=== PATIENT | female | born 1955 | race Caucasian/White ===

== ENCOUNTER 2017-10-15 14:04 | Emergency (ER) | payer OTHER ==
[2017-10-15 14:26] VITALS: BMI 31.2
[2017-10-15] MEDS ORDERED: Lidocaine 2% w Epi 1:100,000 Inj IJ STA (15:28)
[2017-10-15 15:32] LABS: BASO # 0.1 K/uL (0.0-0.2); BASO % 0.3 % (0.0-2.0); EOS # 0.1 K/uL (0.0-0.7); EOS % 0.4 % (0.0-4.0); HEMATOCRIT 39.3 % (34.0-47.0); LYMPH # 2.4 K/uL (1.0-4.3); LYMPH % 14.4 % (20.0-40.0); MEAN CELL VOLUME 80.1 fL (81.0-99.0); MEAN CORPUSCULAR HEMOGLOBIN 26.2 pg (27.0-31.0); MEAN CORPUSCULAR HGB CONC 32.7 g/dL (33.0-37.0); MEAN PLATELET VOLUME 8.8 fL (7.2-11.7); MONO # 1.2 K/uL (0.0-0.8); MONO % 6.9 % (0.0-10.0); RED CELL DISTRIBUTION WIDTH 13.4 % (11.5-14.5); WHITE BLOOD COUNT 16.9 K/uL (4.8-10.8)
--- NOTE | 2017-10-15 15:33 | C.PDOC ---
History Of Present Illness 62 year old female presents to the ED for evaluation of sore throat for approximately 1 week. Patient reports she went to her PMD who prescribed her amoxicillin and steroids, she is currently taking 2 tabs of amoxicillin. Patient went to her PMD again today who sent her to the ED concerned for peritonsillar abscess, upon arrival to the ED patient has a tactile fever. Patient denies cough, nausea, vomit, diarrhea, abdominal pain. Time Seen by Provider: 10/15/17 15:08 Chief Complaint (Nursing): ENT Problem History Per: Patient History/Exam Limitations: None Onset/Duration Of Symptoms: Days Current Symptoms Are (Timing): Still Present Quality (Mouth/Throat): Swelling (peritonsillar) Anticoagulant/Antiplatlet Use?: No Recent Aspirin Use: No Past Medical History Reviewed: Historical Data, Nursing Documentation, Vital Signs Vital Signs: Last Vital Signs Temp 97.5 F L 10/15/17 18:25 Pulse 88 10/15/17 18:25 Resp 16 10/15/17 18:25 BP 142/97 H 10/15/17 18:25 Pulse Ox 96 10/15/17 18:25 - Medical History PMH: No Chronic Diseases Surgical History: No Surg Hx Family History: States: Unknown Family Hx - Social History Hx Alcohol Use: Yes Hx Substance Use: No - Immunization History Hx Tetanus Toxoid Vaccination: No Hx Influenza Vaccination: Yes (2017) Hx Pneumococcal Vaccination: No Review Of Systems Constitutional: Positive for: Fever. Negative for: Chills ENT: Positive for: Throat Pain Respiratory: Negative for: Cough Gastrointestinal: Negative for: Nausea, Vomiting, Diarrhea Skin: Negative for: Rash Physical Exam - Physical Exam Appears: Non-toxic, No Acute Distress Skin: Normal Color, Warm, Dry Head: Atraumatic, Normacephalic Nose: No Discharge, No Deformity Oral Mucosa: Moist, No Drooling Throat: Other (left peritonsillar abscess) Lymphatic: Adenopathy (Positive cervical adenopathy) Chest: Symmetrical Cardiovascular: Rhythm Regular, No Murmur Respiratory: Normal Breath Sounds, No Rales, No Rhonchi, No Wheezing Gastrointestinal/Abdominal: Soft, No Tenderness, No Guarding, No Rebound Extremity: Normal ROM, No Deformity, No Swelling Neurological/Psych: Oriented x3, Normal Speech, Normal Cognition ED Course And Treatment - Laboratory Results Result Diagrams: 10/15/17 15:29 11/30/17 15:29 O2 Sat by Pulse Oximetry: 99 (On RA) Pulse Ox Interpretation: Normal Medical Decision Making Medical Decision Making: Plan: * Neck soft tissue CT ordered * Blood work ordered * Xylocaine [address] Neck : IMPRESSION: A moderately large left peritonsillar abscess is appreciated with prominent local soft edema/ phlegmon deflecting the oral airway toward the right which nevertheless remains patent though moderately diminished in volume. Patient was discussed with Dr. Ruiz who decided to go ahead and order a neck CT and he will come see the patient in the ED. Dr. Ruiz came to the ED to perform an I&D procedure, gave instructions to d/c the patient with a prescription for augmentin, stop amoxicillin and patient will follow up in his office in 2 days. Patient told to return to ED if symptoms worsen. Disposition Discussed With : Carlos Ruiz Doctor Will See Patient In The: ED Counseled Patient/Family Regarding: Studies Performed, Diagnosis, Need For Followup, Rx Given - Disposition Referrals: Carlos Ruiz MD [Staff Provider] - Disposition: HOME/ ROUTINE Disposition Time: 18:09 Condition: STABLE Additional Instructions: follow up with your doctor in 2 days call to make an appointment take medications as prescribed return to hospital if symptoms worsens or progress take augmentin and stop amoxicilln Prescriptions: Amoxicillin/Clavulanate [Augmentin 875 MG-125 MG] 1 tab PO BID #20 tab Instructions: Peritonsillar Abscess (ED) Forms: [facility] (Russian), Work Excuse - Clinical Impression Clinical Impression: Abscess, peritonsillar - Scribe Statement The provider has reviewed the documentation as recorded by the Scribsam Barnes All medical record entries made by the Wiliibe were at my direction and personally dictated by me. I have reviewed the chart and agree that the record accurately reflects my personal performance of the history, physical exam, medical decision making, and the department course for this patient. I have also personally directed, reviewed, and agree with the discharge instructions and disposition.
[2017-10-15 15:47] LABS: ALKALINE PHOSPHATASE 145 U/L (38-126); ALT/SGPT 37 U/L (9-52); AST/SGOT 34 U/L (14-36); BILIRUBIN,TOTAL 1.6 mg/dL (0.2-1.3); BLOOD UREA NITROGEN 27 mg/dL (7-17); CALCIUM 9.1 mg/dl (8.6-10.4); CARBON DIOXIDE 28 mmol/L (22-30); CHLORIDE 98 mmol/L (98-107); GFR AFRICAN-AMERICAN > 60; GLUCOSE,RANDOM 97 mg/dL (65-105); POTASSIUM 4.1 mmol/L (3.6-5.2); SODIUM 134 mmol/L (132-148); TOTAL PROTEIN 8.5 g/dL (6.3-8.3)
[2017-10-15] MEDS ORDERED: Lidocaine 2% w Epi 1:100,000 Inj IJ ONE (15:53)
[2017-10-15] MEDS ORDERED: Iodixanol 320 MG/ML 100 ML BOTTLE IV ONE (16:46)
--- NOTE | 2017-10-15 17:48 | CT ---
PROCEDURE: CT NECK WITH CONTRAST HISTORY: peritonsillar abscess COMPARISON: None TECHNIQUE: CT of the neck with intravenous contrast. Coronal and sagittal reformats generated. Intravenous contrast dose: Visipaque 320, 100 cc Radiation dose: DLP 398.35 mGy-cm This CT exam was performed using one or more of the following dose reduction techniques: Automated exposure control, adjustment of the mA and/or kV according to patient size, and/or use of iterative reconstruction technique. FINDINGS: NASOPHARYNX: Mildly edematous posterior and lateral nasopharyngeal edema is appreciated likely stenosing throughout including the left torus tubarius. SUPRAHYOID NECK: Images through the suprahyoid neck are remarkable for a moderately large peritonsillar abscess measuring 3.3 x 2.0 cm displacing with prominent local soft tissue edema displacing the or pharyngeal airway or right word in the carotid sheath posteriorly somewhat. Peripheral enhancement is seen surrounding the abscess component with prominent peripheral soft tissue edema related. INFRAHYOID NECK: Unremarkable larynx, hypopharynx, and supraglottic space. Vocal cords intact. MASS: None. GLANDS: Parotid and submandibular glands unremarkable. Normal size thyroid gland, without nodule. LYMPH NODES: Normal. No lymphadenopathy. CERVICAL SPINE: No fracture or focal lesion. VASCULAR STRUCTURES: Unremarkable. OTHER FINDINGS: None. IMPRESSION: A moderately large left peritonsillar abscess is appreciated with prominent local soft edema/ phlegmon deflecting the oral airway toward the right which nevertheless remains patent though moderately diminished in volume.
[2017-10-15 18:26] VITALS: BP 142/97; PULSE 88; RESP 16; TEMP 97.5
[2017-10-15 18:55] VITALS: O2SAT 99
--- NOTE | 2017-10-16 05:43 | OP ---
PROCEDURE DATE: 10/15/2017 PREOPERATIVE DIAGNOSIS: Left peritonsillar abscess. POSTOPERATIVE DIAGNOSIS: Left peritonsillar abscess. PROCEDURE: Incision and drainage of left peritonsillar abscess. SIGNIFICANT FINDINGS: Left peritonsillar abscess. DESCRIPTION OF PROCEDURE: The patient was placed in a seated position. The left peritonsillar area was injected with lidocaine with epinephrine. An incision was made in the left peritonsillar area using a #11 blade, clamp dissections were done, pus was noted coming out. Loculations were broken with a clamp. Bleeding was controlled with time. The patient tolerated the procedure well. Carlos Ruzi MD MTDD
== END 2017-10-15 18:33 | disposition home or self-care (01) ==
LOC: C.ER 14:04
DX: J36 Peritonsillar abscess (principal)
CPT/HCPCS: 42700; 70491; 80053; 85025; 99284; Q9967